=== PATIENT | female | born 1995 | race Caucasian/White ===

== ENCOUNTER 2019-09-28 18:00 | Emergency (ER) | payer OTHER ==
[~2019-09-28] VITALS: Ht 167.6 cm; Wt 137.0 kg
[2019-09-28] MEDS ORDERED: LISINOPRIL-HCT1 EACH PO (18:19)
[2019-09-28] MEDS ORDERED: FREESTYLE LANC1 EACH MISC (18:19)
[2019-09-28] MEDS ORDERED: METFORMIN HCL500 MG PO (18:19)
[2019-09-28] MEDS ORDERED: FREESTYLE LITE1 EAC2 MISC (18:19)
[2019-09-28] MEDS ORDERED: SERTRALINE HCL50 MG PO (18:19)
[2019-09-28] MEDS ORDERED: ULTRAM50 MG PO (21:22)
== END 2019-09-28 21:41 | disposition home or self-care (01) ==
LOC: ED 18:00
DX: R10.11 Right upper quadrant pain (principal); E11.9 Type 2 diabetes mellitus without complications; Z79.84 Long term (current) use of oral hypoglycemic drugs; Z79.899 Other long term (current) drug therapy
CPT/HCPCS: 74176; 76705; 80053; 81001; 83690; 84703; 85025; 96374; 96375; 99284-25; J1170; J1885; J2405; J7030

== ENCOUNTER 2021-02-07 05:55 | Day surgery (SDC) | payer OTHER ==
[~2021-02-07] VITALS: Ht 167.6 cm; Wt 97.7 kg
[~2021-02-07 05:55] MED LIST: BUSPIRONE HCL15 MG PO; CLONAZEPAM0.5 MG PO; DICYCLOMINE HCL10 MG PO; FREESTYLE LANC1 EACH MISC; FREESTYLE LITE1 EAC2 MISC; HYDROXYZINE HCL25 MG PO; LISINOPRIL-HCT1 EACH PO; METFORMIN HCL500 MG PO; OMEPRAZOLE20 MG PO; SERTRALINE HCL50 MG PO; ULTRAM50 MG PO; VENLAFAXINE HC150 MG PO; VENTOLIN HFA18 GM INH
--- NOTE | 2021-02-07 08:16 | NUR ---
PT ALERT, ORIENTED AND SUPPORTED BY HER MOTHER. FIRST SURGERY FOR PT, RATHER QUIET. ALL QUESTIONS ASKED ANSWERED, DR CONNER IN AND OR STAFF WAITING. GAVE BLESSING AND ENCOURAGEMENT. WILL FOLLOW NEEDED
--- NOTE | 2021-02-07 09:33 | NUR ---
02/07/21 0933 Lorri Riley 0928- PT ARRIVES TO PACU AWAKE AND ANSWERING QUESTIONS. PT REPORTS NO PAIN OR NAUSEA. RESP EVEN AND UNLABORED. OXYGEN SAT HIGH 90'S TO 100% ON 10L VIA MASK. 0931- OXYGEN TITRATED DOWN TO 6L VIA MASK.
[2021-02-07] MEDS ORDERED: IBUPROFEN600 MG PO (09:58)
[2021-02-07] MEDS ORDERED: ACETAMINOPHEN500 MG PO (09:59)
[2021-02-07] MEDS ORDERED: HYDROCODON-ACE1 EA10 PO (09:59)
--- NOTE | 2021-02-07 10:24 | NUR ---
PATIENT BACK TO ROOM FORM PACU ON RA. RECEIVED REPORT FROM SANDRA WITT. TANYA IS AWAKE. VSS. RATES PAIN 3/10 AND DECLINES PAIN MEDICATION AT THIS TIME. DENIES NAUSEA. ALL 5 LAP SITES HAVE A SMALL AMOUNT OF RED DRAINAGE. PATIENT HAS PILLOW ON ABDOMEN TO SPLINT WITH IF NEEDED. MOM AT BEDSIDE. PROVIDED PATIETN WITH WATER AND CRACKERS. CALL LIGHT WITHIN REACH.
--- NOTE | 2021-02-07 10:38 | NUR ---
PATIENT RATES PAIN 5/10. PAIN MEDICATION GIVEN PER EMAR.
--- NOTE | 2021-02-07 11:25 | NUR ---
1110-PATIENT AWAKE LAYING IN BED. VSS. RATES HER PAIN 4/10 PAIN. POINTS TO RUQ WHERE HER PAIN IS. DENIES NAUSEA. ALL 5 LAP SITES HAVE A SMALL AMOUNT OF RED DRAINAGE. PATIENT DRINKING WATER. MOM AT BEDSIDE. CALL LIGHT WITHIN REACH. 1115-PATIENT UP TO BATHROOM WITH 1 RN ASSIST. GAIT STEADY AND TOLERATED WELL. STATES "PAIN BETTER SINCE SITTING UP AND STANDING". ADJUSTED HOB. PAITENT SITTING UP IN BED. CALL LIGHT WITHIN REACH.
--- NOTE | 2021-02-07 12:12 | NUR ---
PATIENT AWAKE AND SITTING UP IN BED. VSS. RATES PAIN 2/10. DENIES NAUSEA. ALL 5 LAP SITES WITH SMALL AMOUNT OF DRAINAGE. MOM AT BEDSIDE. PATIENT IS DRINKING WATER. CALL LIGHT WITHIN REACH. 1213-PROVIDED PATIENT AND MOM WITH DISCHARGE INSTRUCTIONS. PATIENT VERBALIZED UNDERSTANDING AND ALL QUESTIONS ANSWERED.
--- NOTE | 2021-02-07 12:30 | NUR ---
PATIENT AMBULATES TO THE WHEEL CHAIR. STATES PAIN IS STILL 2/10. PROVIDED RIDE TO FRONT OF HOSPITAL WHERE PATIENTS MOM WAS WAITING WITH THE CAR.
--- NOTE | 2021-02-09 15:07 | OR ---
[facility] [address], [place] [address] Signed DATE OF OPERATION: 02/07/2021 SURGEON: Ximena Conner MD PREOPERATIVE DIAGNOSES: 1. Chronic persistent right lower abdominal pain and chronic recurrent right mid abdominal pain. 2. CCK-HIDA test abnormal, 30% ejection fraction. 3. Morbid obesity with significant additional weight loss (current weight 220 pounds). POSTOPERATIVE DIAGNOSES: 1. Mild chronic acalculous cholecystitis, normal cholangiogram. 2. Fatty liver. 3. 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 PROCEDURES: 1. Laparoscopic cholecystectomy with intraoperative cholangiogram. 2. Surgeon-directed fluoroscopy. 3. Laparoscopic liver biopsy. 4. Laparoscopic appendectomy. ANESTHESIA: General endotracheal, Ximena Mott CRNA and local 20 mL of 0.25% Marcaine with epinephrine. INDICATIONS: This 25-year-old white woman is a patient of BRINA Qiu. The patient has undergone significant and substantial weight loss effort, but still remains 220 pounds. She has developed over time right lower abdominal pain, which is occasionally disabling as well as right mid and upper abdominal pain. Upper endoscopy and colonoscopy failed to demonstrate etiology of the problem. Imaging studies have included ultrasound of the gallbladder, which was normal and CT scan showing no specific abnormality. She does have mild splenomegaly based on June 17, 2020 CT scan. A CCK-HIDA test showed an ejection fraction of 30%, which was essentially abnormal. She has had no improvement of her symptoms over time and on that basis, I have recommended laparoscopy with probable laparoscopic cholecystectomy and appendectomy and other indicated procedures. Evaluation of right adnexal structures and small bowel to assess for Meckel's diverticulum has also been discussed. The risks of bleeding, infection, bile duct injury, need for open procedure, and of course failure to improve her symptoms were reviewed in detail. She understands and wished to proceed. Electronically Signed By: XIMENA CONNER MD 02/09/21 1507 PATIENT NAME: MONTRELL JONES OPERATIVE REPORT DATE OF : [birth year] REPORT #: [id number] PHYSICIAN: XIMENA CONNER MD PCP: EMELIA PAGAN NP REPORT IS CONFIDENTIAL AND NOT TO BE RELEASED WITHOUT AUTHORIZATION [facility] [address], [place] [address] Signed FINDINGS: The liver had significant steatosis. The omentum initially was over the dome of the liver. The gallbladder once identified, did show chronic inflammatory change and an enlarged pericholecystic lymph node indicative of chronic recurrent inflammation. The gallbladder itself was excised, showed no sign of stones, but did have a shaggy mucosa consistent with adenomyosis. The cholangiogram was normal with no evidence of dilated duct. Lower abdominal examination showed a normal terminal ileum and no evidence of Meckel diverticulum. Appendix was not particularly distended, but was mildly chronically inflamed, and there was a small pearly nodule in the distal tip that about 1 cm in size. Whether this represents fibrous obliteration or neoplasm such as carcinoid remains uncertain. This was excised as well. The right ovary was normal without signs of cyst. DESCRIPTION OF PROCEDURE: The patient was brought to the operating room, given a general endotracheal anesthetic. Preoperative antibiotic Ancef was given. Sequential compression device stockings used and heparin subcutaneously administered. The large abdomen with multiple skin folds was prepared with a chlorhexidine solution and draped sterilely. An infraumbilical incision was made and using an open Yan cannula technique, the abdomen was entered and pneumoperitoneum achieved to a level of 14 mmHg of carbon dioxide gas. Intraabdominal inspection showed no sign of ascites or carcinomatosis. The laparoscope was passed into the abdomen. Examination showed omentum covering the right lobe of the liver. A very blunted and rounded liver edge consistent with fatty infiltration was noted. Three additional trocars were placed in usual configuration in the subxiphoid, right midclavicular, and right anterior axillary line. This allowed for manipulation of the omentum revealing the underlying gallbladder, which showed mild chronic inflammatory change. The gallbladder was grasped and elevated cephalad and retracted laterally. Using blunt and electrocautery dissection, the triangle of Calot was dissected free. Notable was an enlarged pericholecystic lymph node indicative of chronic recurrent inflammation. The cystic duct was well identified from surrounding structures and clip applied across gallbladder cystic duct junction. A transverse choledochotomy was made in the cystic duct allowing for egress of clear bile. Using the Guerrero type cholangiocatheter system, intraoperative cholangiography was undertaken showing free flow of contrast in the biliary tree with prompt emptying into the duodenum. The biliary tree was narrow and nondilated. On initial run on fluoroscopy, there appeared to be a filling defect in the mid common bile duct, but additional these did not show such to think this may have represented a bulb or some other similar abnormality. The gallbladder was dissected free in a retrograde fashion after application of clips to the cystic duct. The gallbladder was placed in an endobag and extracted through the Electronically Signed By: XIMENA CONNER MD 02/09/21 1507 PATIENT NAME: MONTRELL JONES OPERATIVE REPORT DATE OF : [birth year] REPORT #: [id number] PHYSICIAN: XIMENA CONNER MD PCP: EMELIA PAGAN NP REPORT IS CONFIDENTIAL AND NOT TO BE RELEASED WITHOUT AUTHORIZATION [facility] [address], [place] [address] Signed infraumbilical port site opened on the back table and found to have chronic inflammatory change of the mucosa. No evidence of stones or neoplasm. Irrigation was undertaken in subhepatic space. There was no sign of bleeding, bile leak, or other problems. Given the somewhat uncertain nature of her underlying symptoms and given her fatty liver and profound weight loss over time, it was deemed advisable at this point to perform a liver biopsy to assess level and the possibility of steatohepatitis. Percutaneous passage of the biopsy guide needle was undertaken under direct visualization after a small stab wound was made. Core biopsy was taken from the medial segment of the left lobe of the liver. Bleeding was secured with electrocautery. The specimen was offloaded, passed as a liver biopsy. Irrigation was undertaken showing no sign of bleeding or other problem. Attention was then turned towards the lower abdomen. Table was placed in a neutral position, previously in the head up, left side down position. Left side down was maintained to some degree, however. Laparoscopic placement of the catheter to the epigastric port allowed for single hand manipulation of the cecum in the lower abdomen. The appendix could not be identified with that method and on that basis, an additional 5 mm trocars placed in the left lower quadrant. Using two hand manipulation, the terminal ileum was identified as manifested by the antimesenteric fat pad of trieve. It appeared normal. The taenia coli of the cecum was followed down ultimately identifying the base of the appendix and ultimately the appendix itself identified. The appendix did not appear acutely inflamed, did have a chronic dull appearance suggestive of chronic appendicitis. The various manipulations of the appendix was elevated. There appeared to be a pearly nodule on the tip of the appendix, uncertain if this represented a carcinoid or some other neoplasm or simple fibrous obliteration of the tip. It was a bulbous appearance to be sure. A window was created between the appendix and the mesoappendix at the base of the appendix and using an Endo-REGINALDO stapling device. The appendix was transected and flushed with the cecum. The mesentery was similarly divided with another vascular load of stapler. The appendix was withdrawn into the trocar and explanted and examined and the nodule in the tip was quite real indeed. Photographs were taken. Irrigation was undertaken at the staple line. Minimal cautery was applied. There was no sign of ongoing bleeding. Excess irrigation fluid was suctioned free. Using two hand manipulation, the terminal ileum was examined gently running the bowel from distal to proximal showing no evidence of Meckel diverticulum. With some manipulation in table position, the right adnexal structures could be identified, identifying well and the ovary, which was normal without sign of cystic change. Excess irrigation fluid was suctioned free both in the upper and lower abdomen and plans made for closure. The camera was replaced to the infraumbilical site. The trocars removed under direct Electronically Signed By: IXMENA CONNER MD 02/09/21 1507 PATIENT NAME: MONTRELL JONES OPERATIVE REPORT DATE OF : [birth year] REPORT #: [id number] PHYSICIAN: XIMENA CONNER MD PCP: EMELIA PAGAN NP REPORT IS CONFIDENTIAL AND NOT TO BE RELEASED WITHOUT AUTHORIZATION [address] [address] Signed visualization showing no sign of bleeding. Yan cannula was removed. The midline fascia was reapproximated with interrupted 0-Vicryl suture and a running 0-PDS suture. A 20 mL of 0.25% Marcaine with epinephrine was injected locally. The skin closed with interrupted 3-0 Vicryl. Steri-Strips were applied. The patient was ultimately extubated and transferred to the recovery room in good condition having suffered no complications. Sponge, needle, and instrument counts were reported as correct x3. MD THELMA Barros/COLLINL /[id number] Copies: ~ Electronically Signed By: XIMENA CONNER MD 02/09/21 1507 PATIENT NAME: MONTRELL JONES OPERATIVE REPORT DATE OF : [birth year] REPORT #: [id number] PHYSICIAN: XIMENA CONNER MD PCP: EMELIA PAGAN NP REPORT IS CONFIDENTIAL AND NOT TO BE RELEASED WITHOUT AUTHORIZATION
--- NOTE | 2021-02-12 15:27 | PATH ---
[place] [facility] [address] [facility] [place], [place] [address] Signed SPECIMEN(S): A LIVER BIOPSY SPECIMEN(S): B APPENDIX WITH DISTAL NODULE SPECIMEN(S): C GALLBLADDER SPECIMEN SOURCE: A. LIVER BIOPSY B. APPENDIX WITH DISTAL NODULE C. GALLBLADDER CLINICAL HISTORY: Abdominal pain, right side. FINAL PATHOLOGIC DIAGNOSIS: A. Liver, biopsies: - Benign hepatic parenchyma with minimal periportal inflammation. - Negative for fibrosis. B. 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 - Tumor site: Distal half. - Tumor size: 0.7 cm in greatest dimension. - Histologic type and grade: Well-differentiated. - Mitotic rate: Less than 2 mitoses per 2 mm. - Ki-67 labeling index: Less than 3%. - Microscopic tumor extension: Invades subserosal tissue without involvement of visceral peritoneum. - Margins: Uninvolved by tumor. - Distance of tumor from closest margin: Cannot be assessed. - Lymphovascular invasion: Not identified. - Regional lymph nodes: None submitted. - Additional findings: None. - Pathologic staging: pT1 pNX. C. Gallbladder, cholecystectomy: - Cholelithiasis and chronic cholecystitis. - One benign lymph node. COMMENT: Properly controlled immunohistochemical stains were performed on block B3 for synaptophysin and Ki-67. The tumor cells are positive for synaptophysin while Ki-67 is present in less than 3%. PATIENT NAME: MONTRELL JONES ESTUARDOCARMELITAYenifer PATHOLOGY DATE OF : [birth year] REPORT #: [id number] PHYSICIAN: LAURA PATHOLOGY PCP: EMELIA PAGAN NP REPORT IS CONFIDENTIAL AND NOT TO BE RELEASED WITHOUT AUTHORIZATION [facility] [address] [place], [place] [address] Signed As part of [email or web address]' Quality Improvement Program, this case was reviewed by another member of our pathology staff. A diagnostic alert was initiated by Dr. Jimenez on 02/12/2021. [id number] MICROSCOPIC EXAMINATION: Histologic sections of all submitted blocks are examined by light microscopy. These findings, together with the gross examination, support the pathologic diagnosis. GROSS DESCRIPTION: Three specimens are received in three containers, labeled "SE." A. The specimen, labeled "SE, liver biopsy," is received in formalin and consists of one pink-thakkar, needle core tissue fragment that measure 1.0 cm in length and 0.1 cm in diameter. Specimen is inked black. Specimen is entirely submitted in cassette (A1). B. The specimen, labeled "SE, appendix," is received in formalin and consists of Specimen: Appendix with mesoappendix. Dimensions: 6.2 x 0.7 cm. Serosa: [place]-red, smooth with congested subserosal vessels. Defect: Not grossly identified. Inking: Staple line is inked black. Mucosa: [place]-red. Fecalith: Not grossly identified. Additional: Distal end of the appendix shows white, firm nodule that measure 0.7 cm in greatest dimension. Sectioning through the tip of the appendix shows yellow-thakkar homogenous tissue. Cassette summary: (B1) appendix and mesoappendix, resection margins, shave (B2) appendix, practice representative sections (B3) appendiceal nodule, entirely submitted C. The specimen, labeled "SE, gallbladder," is received in formalin and consists of Specimen: Previously opened gallbladder. Dimensions: 7.5 x 3.3 cm. Serosa: violaceous and smooth. Cystic Duct: unobstructed. Calculi: Calculi are not grossly identified within the gallbladder or within the container. Mucosa: [place]-red and velvety. PATIENT NAME: MONTRELL JONES PATHOLOGY DATE OF : [birth year] REPORT #: [id number] PHYSICIAN: LAURA CURRAN PCP: EMELIA PAGAN NP REPORT IS CONFIDENTIAL AND NOT TO BE RELEASED WITHOUT AUTHORIZATION [facility] [address] [place], [place] [address] Signed Wall thickness: 0.3 cm. Lymph node: One possible pericystic lymph node is identified and measure one-point thakkar centimeters in greatest dimension. Possible lymph node is sectioned and entirely submitted Additional: None. Emergency Specialist sections are submitted in cassette (C1). JS (under the direct supervision of a pathologist) The Gross Description was prepared using a voice recognition system. The report was reviewed for accuracy; however, sound-alike word errors, addition and/or deletions may occur. If there is any question about this report, please contact Client Services. ADDITIONAL NOTES: Immunohistochemical and/or in situ hybridization studies were performed on this case with the appropriate positive controls that react as expected. This test was developed and its performance characteristics determined by [facility]. It has not been cleared or approved by the U.S. Food and Drug Administration. The FDA has determined that such clearance or approval is not necessary. This test is used for clinical purposes. It should not be regarded as investigational or for research. [facility] is certified under the Clinical Laboratory Improvement Amendments of 1988 (CLIA) as qualified to perform high complexity clinical laboratory testing. This assay has not been validated for specimens that have been decalcified. PERFORMING LABORATORY: Professional interpretation was performed by [facility], [address] [place] [address] (Blanker Operator: Kelsea Harry MD; CLIA# [id number]). Diagnostician: Arsen Jimenez DO Pathologist Electronically Signed 02/12/2021 Copies: ~ PATIENT NAME: MONTRELL JONES PATHOLOGY DATE OF : [birth year] REPORT #: [id number] PHYSICIAN: LUARA CURRAN PCP: EMELIA PAGAN NP REPORT IS CONFIDENTIAL AND NOT TO BE RELEASED WITHOUT AUTHORIZATION
== END 2021-02-07 12:30 | disposition home or self-care (01) ==
LOC: DS 05:55
PROVIDERS: ATTEND Surgery
PROC: 0DTJ4ZZ Resection of Appendix, Percutaneous Endoscopic Approach (ICD-10-PCS; 2021-02-07)
PROC: 0FT44ZZ Resection of Gallbladder, Percutaneous Endoscopic Approach (ICD-10-PCS; principal; 2021-02-07 06:45)
PROC: BF13YZZ Fluoroscopy of Gallbladder and Bile Ducts using Other Contrast (ICD-10-PCS; 2021-02-07 06:45)
PROC: 0FB04ZX Excision of Liver, Percutaneous Endoscopic Approach, Diagnostic (ICD-10-PCS; 2021-02-07 06:45)
DX: K80.10 Calculus of gallbladder with chronic cholecystitis without obstruction (principal); K36 Other appendicitis; K76.0 Fatty (change of) liver, not elsewhere classified; D49.0 Neoplasm of unspecified behavior of digestive system; E66.01 Morbid (severe) obesity due to excess calories
CPT/HCPCS: 00790; 74300; J0131; J0330; J0690; J1100; J1644; J1885; J2250; J2405; J2704; J2765; J3010; J7121; Q9967

== ENCOUNTER 2022-07-05 15:36 | Emergency (ER) | payer OTHER ==
[~2022-07-05] VITALS: Ht 167.6 cm; Wt 107.0 kg
[~2022-07-05 15:36] MED LIST changes: +ACETAMINOPHEN500 MG PO; +HYDROCODON-ACE1 EA10 PO; +IBUPROFEN600 MG PO
[2022-07-05] MEDS ORDERED: ONDANSETRON ODT8 MG PO ×2 (18:00→18:27)
[2022-07-05] MEDS ORDERED: PROTONIX40 MG PO ×2 (18:00→18:27)
[2022-07-05] MEDS ORDERED: SUCRALFATE1 GM PO ×2 (18:00→18:27)
[2022-07-05] MEDS ORDERED: ACETAMINOPHEN500 MG PO (18:27)
== END 2022-07-05 18:30 | disposition home or self-care (01) ==
LOC: ED 15:36
DX: K29.70 Gastritis, unspecified, without bleeding (principal); E11.9 Type 2 diabetes mellitus without complications; Z79.899 Other long term (current) drug therapy
CPT/HCPCS: 36415; 80053; 81001; 83690; 83735; 84703; 85025; 96374; 96375; 99284-25; C9803; J2270; J2405

== ENCOUNTER 2022-08-25 17:34 | Emergency (ER) | payer OTHER ==
[~2022-08-25] VITALS: Ht 167.6 cm; Wt 107.0 kg
[~2022-08-25 17:34] MED LIST changes: +ONDANSETRON ODT8 MG PO; +PROTONIX40 MG PO; +SUCRALFATE1 GM PO
[2022-08-25] MEDS ORDERED: CETIRIZINE HCL10 MG PO (17:51)
[2022-08-25] MEDS ORDERED: TRULICITY0.75 MG/0. SUB-Q (17:52)
[2022-08-25] MEDS ORDERED: ONDANSETRON ODT8 MG PO (18:50)
[2022-08-25 18:59] VITALS: BP 106/69
== END 2022-08-25 18:59 | disposition home or self-care (01) ==
LOC: ED 17:34
DX: K29.00 Acute gastritis without bleeding (principal); E11.9 Type 2 diabetes mellitus without complications; Z79.899 Other long term (current) drug therapy
CPT/HCPCS: 36415; 80053; 81003; 83690; 84703; 85025; J2405; J7030

== ENCOUNTER 2022-11-01 08:19 | Emergency (ER) | payer OTHER ==
[~2022-11-01] VITALS: Ht 167.6 cm; Wt 112.9 kg
--- OUTSIDE RECORDS SUMMARY | ~2022-11-01 | XMS | Continuity of Care Document ---
Demographics + + + | Address | [address] | | | [place] [address] | + + + | Preferred Language | Unknown | + + + | Marital Status | Never | + + + | Orthodox Affiliation | Unknown | + + + | Race | White | + + + | Ethnic Group | Not or | + + + Author + + + | Author | [facility] | + + + | Organization | [facility] | + + + | Address | [address] | | | [place] [address] | + + + | Phone | | + + + Care Team Providers + + + + | Care Graduate Studies Dean Name | Role | Phone | + + + + Unavailable | Unavailable | + + + + Unavailable | Unavailable | + + + + Allergies and Intolerances + + + + + + | date | description | facility | reaction | severity | + + + + + + | (no date) | NO KNOWN | [facility] | (no reaction) | (no severity) | | | ALLERGIES | [facility] | | | | [facility] | | | + + + + + + Encounters No information. Functional Status No information. Immunizations No information. Medications + + + + | date | description | facility | + + + + | 2022-08-25 00:00 | CETIRIZINE HCL | [facility] | + + + + | 2022-08-25 00:00 | DULAGLUTIDE | [facility] | + + + + | 2022-07-05 00:00 | clonAZEpam | [facility] | + + + + | 2021-02-07 00:00 | IBUPROFEN | [facility] | + + + + | 2022-07-05 00:00 | | [facility] | | | LISINOPRIL/HYDROCHLOROTHIAZ | | | | [facility] | | + + + + | 2022-08-25 00:00 | | [facility] | | | LISINOPRIL/HYDROCHLOROTHIAZ | | | | [facility] | | + + + + | 2022-07-05 00:00 | OMEPRAZOLE | [facility] | + + + + | 2021-02-07 00:00 | ACETAMINOPHEN | [facility] | + + + + | 2022-07-05 00:00 | ACETAMINOPHEN | [facility] | + + + + | 2022-07-05 00:00 | PANTOPRAZOLE SODIUM | [facility] | + + + + | 2022-07-05 00:00 | ONDANSETRON | [facility] | + + + + | 2022-08-25 00:00 | ONDANSETRON | [facility] | + + + + | 2022-07-05 00:00 | SERTRALINE HCL | [facility] | + + + + | 2022-08-25 00:00 | SERTRALINE HCL | [facility] | + + + + | 2022-07-05 00:00 | VENLAFAXINE HCL | [facility] | + + + + | 2022-08-25 00:00 | VENLAFAXINE HCL | [facility] | + + + + | 2022-07-05 00:00 | SUCRALFATE | [facility] | + + + + | 2019-09-28 00:00 | TRAMADOL HCL | [facility] | + + + + | 2021-02-07 00:00 | HYDROCODONE | [facility] | | | BIT/ACETAMINOPHEN | | + + + + | 2022-07-05 00:00 | ALBUTEROL SULFATE | [facility] | + + + + | 2022-08-25 00:00 | ALBUTEROL SULFATE | [facility] | + + + + | 2022-07-05 00:00 | METFORMIN HCL | [facility] | + + + + | 2022-08-25 00:00 | METFORMIN HCL | [facility] | + + + + | 2022-07-05 00:00 | BUSPIRONE HCL | [facility] | + + + + | 2022-08-25 00:00 | BUSPIRONE HCL | [facility] | + + + + | 2022-07-05 00:00 | DICYCLOMINE HCL | [facility] | + + + + | 2022-07-05 00:00 | hydrOXYzine HCL | [facility] | + + + + | 2022-08-25 00:00 | hydrOXYzine HCL | [facility] | + + + + Problems + + + + | date | description | facility | + + + + | 2019-05-23 08:37:21 | Earache | [facility] | | | | [facility] | + + + + | 2019-05-23 08:37:21 | Brice souza, | [facility] - | | | bilateral | [facility] | + + + + | 2019-05-23 08:37:21 | Elevated blood-pressure | [facility] - | | | reading, without diagnosis | [facility] | | | of hypertension | | + + + + | 2019-06-17 00:00 | Viral respiratory | [facility] | | | infection | | + + + + | 2019-09-28 00:00 | Abdominal pain | [facility] | + + + + | 2022-07-05 00:00 | Gastritis | [facility] | + + + + | 2022-08-25 00:00 | Acute gastritis | [facility] | + + + + Procedures No information. Results/Labs +--------+--------+ +---------+--------+---------+ | test | date | facility | value | unit | notes | +--------+--------+ +---------+--------+---------+ + + | Result panel 1 | + + + + + + + + + | | 2022-07-05 | [facility] | NEGATIVE | (missing) | (missing) | | (unavailable | 16[facility]16:07 [facility] | | | | + + + + + + + + + | Result panel 2 | + + + + + +--------+ + + | | 2022-07-05 | [facility] | 10.3 | (missing) | (missing) | | (unavailable | [facility]16:07 [facility] | | | | + + + +--------+ + + + + | Result panel 3 | + + + + + +--------+ + + | | 2022-07-05 | [facility] | 5.47 | (missing) | (missing) | | (unavailable | 16[facility]16:07 [facility] | | | | + + + +--------+ + + + + | Result panel 4 | + + + + + +--------+ + + | | 2022-07-05 | [facility] | 15.4 | (missing) | (missing) | | (unavailable | [facility]16:07 [facility] | | | | + + + +--------+ + + + + | Result panel 5 | + + + + + +--------+ + + | | 2022-07-05 | [facility] | 44.6 | (missing) | (missing) | | (unavailable | [facility]:16:07 [facility] | | | | + + + +--------+ + + + + | Result panel 6 | + + + + + +--------+ + + | | 2022-07-05 | [facility] | 81.5 | (missing) | (missing) | | (unavailable | [facility]16:07 [facility] | | | | + + + +--------+ + + + + | Result panel 7 | + + + + + +--------+ + + | | 2022-07-05 | [facility] | 28.0 | (missing) | (missing) | | (unavailable | [facility]16:07 [facility] | | | | + + + +--------+ + + + + | Result panel 8 | + + + + + +--------+ + + | | 2022-07-05 | [facility] | 34.4 | (missing) | (missing) | | (unavailable | [facility]16:07 [facility] | | | | + + + +--------+ + + + + | Result panel 9 | + + + + + +--------+ + + | | 2022-07-05 | [facility] | 12.9 | (missing) | (missing) | | (unavailable | [facility]16:07 [facility] | | | | + + + +--------+ + + + + | Result panel 10 | + + + + + +-------+ + + | | 2022-07-05 | [facility] | 309 | (missing) | (missing) | | (unavailable | [facility]16:07 [facility] | | | | + + + +-------+ + + + + | Result panel 11 | + + + + + +--------+ + + | | 2022-07-05 | [facility] | 78.5 | (missing) | (missing) | | (unavailable | [facility]16:07 [facility] | | | | + + + +--------+ + + + + | Result panel 12 | + + + + + +--------+ + + | | 2022-07-05 | [facility] | 14.1 | (missing) | (missing) | | (unavailable | [facility]16:07 [facility] | | | | + + + +--------+ + + + + | Result panel 13 | + + + + + +-------+ + + | | 2022-07-05 | [facility] | 4.4 | (missing) | (missing) | | (unavailable | [facility]16:07 [facility] | | | | + + + +-------+ + + + + | Result panel 14 | + + + + + +-------+ + + | | 2022-07-05 | [facility] | 2.6 | (missing) | (missing) | | (unavailable | [facility]16:07 [facility] | | | | + + + +-------+ + + + + | Result panel 15 | + + + + + +-------+ + + | | 2022-07-05 | [facility] | 0.4 | (missing) | (missing) | | (unavailable | [facility]16:07 [facility] | | | | + + + +-------+ + + + + | Result panel 16 | + + + + + +------+---------+ + | | 2022-07-05 | [facility] | 92 | mg/dL | (missing) | | (unavailable | [facility]16:07 [facility] | | | | + + + +------+---------+ + + + | Result panel 17 | + + + + + +------+---------+ + | | 2022-07-05 | [facility] | 10 | mg/dL | (missing) | | (unavailable | [facility]16:07 [facility] | | | | + + + +------+---------+ + + + | Result panel 18 | + + + + + +--------+---------+ + | | 2022-07-05 | [facility] | 0.73 | mg/dL | (missing) | | (unavailable | [facility]:16:07 [facility] | | | | + + + +--------+---------+ + + + | Result panel 19 | + + + + + +-------+ + + | | 2022-07-05 | [facility] | 116 | (missing) | (missing) | | (unavailable | [facility]16:07 [facility] | | | | + + + +-------+ + + + + | Result panel 20 | + + + + + +---------+ + + | | 2022-07-05 | [facility] | 13.69 | (missing) | (missing) | | (unavailable | [facility]16:07 [facility] | | | | + + + +---------+ + + + + | Result panel 21 | + + + + + +-------+ + + | | 2022-07-05 | [facility] | 138 | (missing) | (missing) | | (unavailable | 16:16:07 [facility] | | | | + + + +-------+ + + + + | Result panel 22 | + + + + + +-------+ + + | | 2022-07-05 | [facility] | 3.5 | (missing) | (missing) | | (unavailable | [facility]16:07 [facility] | | | | + + + +-------+ + + + + | Result panel 23 | + + + + + +-------+ + + | | 2022-07-05 | [facility] | 101 | (missing) | (missing) | | (unavailable | 16[facility]16:07 [facility] | | | | + + + +-------+ + + + + | Result panel 24 | + + + + + +------+ + + | | 2022-07-05 | [facility] | 27 | (missing) | (missing) | | (unavailable | 16[facility]16:07 [facility] | | | | + + + +------+ + + + + | Result panel 25 | + + + + + +--------+ + + | | 2022-07-05 | [facility] | 13.5 | (missing) | (missing) | | (unavailable | [facility]16:07 [facility] | | | | + + + +--------+ + + + + | Result panel 26 | + + + + + +-------+---------+ + | | 2022-07-05 | [facility] | 9.7 | mg/dL | (missing) | | (unavailable | [facility]16:07 [facility] | | | | + + + +-------+---------+ + + + | Result panel 27 | + + + + + +-------+---------+ + | | 2022-07-05 | [facility] | 2.1 | mg/dL | (missing) | | (unavailable | 16:16:07 [facility] | | | | + + + +-------+---------+ + + + | Result panel 28 | + + + + + +-------+ + + | | 2022-07-05 | [facility] | 8.0 | (missing) | (missing) | | (unavailable | [facility]16:07 [facility] | | | | + + + +-------+ + + + + | Result panel 29 | + + + + + +-------+ + + | | 2022-07-05 | [facility] | 4.2 | (missing) | (missing) | | (unavailable | [facility]16:07 [facility] | | | | + + + +-------+ + + + + | Result panel 30 | + + + + + +-------+ + + | | 2022-07-05 | [facility] | 3.8 | (missing) | (missing) | | (unavailable | [facility]16:07 [facility] | | | | + + + +-------+ + + + + | Result panel 31 | + + + + + +--------+ + + | | 2022-07-05 | [facility] | 1.11 | (missing) | (missing) | | (unavailable | [facility]:16:07 [facility] | | | | + + + +--------+ + + + + | Result panel 32 | + + + + + +-------+ + + | | 2022-07-05 | [facility] | 0.4 | (missing) | (missing) | | (unavailable | [facility]16:07 [facility] | | | | + + + +-------+ + + + + | Result panel 33 | + + + + + +------+ + + | | 2022-07-05 | [facility] | 15 | (missing) | (missing) | | (unavailable | [facility]16:07 [facility] | | | | + + + +------+ + + + + | Result panel 34 | + + + + + +------+ + + | | 2022-07-05 | [facility] | 17 | (missing) | (missing) | | (unavailable | 16:16:07 [facility] | | | | + + + +------+ + + + + | Result panel 35 | + + + + + +------+ + + | | 2022-07-05 | [facility] | 61 | (missing) | (missing) | | (unavailable | 16:16:07 [facility] | | | | + + + +------+ + + + + | Result panel 36 | + + + + + +------+ + + | | 2022-07-05 | [facility] | 99 | (missing) | (missing) | | (unavailable | 16:16:07 [facility] | | | | + + + +------+ + + + + | Result panel 37 | + + + + + + + + + | | 2022-07-05 | [facility] | YELLOW | (missing) | (missing) | | (unavailable | 17:54:07 | [facility] | | | | + + + + + + + + + | Result panel 38 | + + + + + +---------+ + + | | 2022-07-05 | [facility] | CLEAR | (missing) | (missing) | | (unavailable | 17:54:07 | [facility] | | | | + + + +---------+ + + + + | Result panel 39 | + + + + + + + + + | | 2022-07-05 | [facility] | NEGATIVE | (missing) | (missing) | | (unavailable | 17:54:07 | [facility] | | | | + + + + + + + + + | Result panel 40 | + + + + + + + + + | | 2022-07-05 | [facility] | NEGATIVE | (missing) | (missing) | | (unavailable | 17:54:07 [facility] | | | | + + + + + + + + + | Result panel 41 | + + + + + + + + + | | 2022-07-05 | [facility] | NEGATIVE | (missing) | (missing) | | (unavailable | 17:54:07 | [facility] | | | | + + + + + + + + + | Result panel 42 | + + + + + +---------+ + + | | 2022-07-05 | [facility] | 1.015 | (missing) | (missing) | | (unavailable | 17:54:07 | [facility] | | | | + + + +---------+ + + + + | Result panel 43 | + + + + + + + + + | | 2022-07-05 | [facility] | NEGATIVE | (missing) | (missing) | | (unavailable | 17:54:07 | [facility] | | | | + + + + + + + + + | Result panel 44 | + + + + + +-------+ + + | | 2022-07-05 | [facility] | 8.5 | (missing) | (missing) | | (unavailable | 17:54:07 | [facility] | | | | + + + +-------+ + + + + | Result panel 45 | + + + + + +------+ + + | | 2022-07-05 | [facility] | 30 | (missing) | (missing) | | (unavailable | 17:54:07 | [facility] | | | | + + + +------+ + + + + | Result panel 46 | + + + + + + + + + | | 2022-07-05 | [facility] | NORMAL | (missing) | (missing) | | (unavailable | 17:54:07 | [facility] | | | | + + + + + + + + + | Result panel 47 | + + + + + + + + + | | 2022-07-05 | [facility] | NEGATIVE | (missing) | (missing) | | (unavailable | 17:54:07 | [facility] | | | | + + + + + + + + + | Result panel 48 | + + + + + + + + + | | 2022-07-05 | [facility] | MODERATE | (missing) | (missing) | | (unavailable | 17:54:07 | [facility] | | | | + + + + + + + + + | Result panel 49 | + + + + + +-------+ + + | | 2022-07-05 | [facility] | 2-3 | (missing) | (missing) | | (unavailable | 17:54:07 | [facility] | | | | + + + +-------+ + + + + | Result panel 50 | + + + + + +-------+ + + | | 2022-07-05 | [facility] | 4-6 | (missing) | (missing) | | (unavailable | 17:54:07 | [facility] | | | | + + + +-------+ + + + + | Result panel 51 | + + + + + + + + + | | 2022-07-05 | [facility] | SQUAMOUS 3+ | (missing) | (missing) | | (unavailable | 17:54:07 | [facility] | | | | + + + + + + + + + | Result panel 52 | + + + + + +--------+ + + | | 2022-07-05 | [facility] | RARE | (missing) | (missing) | | (unavailable | 17:54:07 | [facility] | | | | + + + +--------+ + + + + | Result panel 53 | + + + + + +------+ + + | | 2022-07-05 | [facility] | No | (missing) | (missing) | | (unavailable | 17:54:07 | [facility] | | | | + + + +------+ + + + + | Result panel 54 | + + + + + + + + + | | 2022-08-25 | [facility] | YELLOW | (missing) | (missing) | | (unavailable | 17:42:07 | [facility] | | | | + + + + + + + + + | Result panel 55 | + + + + + +---------+ + + | | 2022-08-25 | [facility] | CLEAR | (missing) | (missing) | | (unavailable | 17:42:07 | [facility] | | | | + + + +---------+ + + + + | Result panel 56 | + + + + + + + + + | | 2022-08-25 | [facility] | NEGATIVE | (missing) | (missing) | | (unavailable | 17:42:07 | [facility] | | | | + + + + + + + + + | Result panel 57 | + + + + + + + + + | | 2022-08-25 | [facility] | NEGATIVE | (missing) | (missing) | | (unavailable | 17:42:07 | [facility] | | | | + + + + + + + + + | Result panel 58 | + + + + + + + + + | | 2022-08-25 | [facility] | NEGATIVE | (missing) | (missing) | | (unavailable | 17:42:07 | [facility] | | | | + + + + + + + + + | Result panel 59 | + + + + + +---------+ + + | | 2022-08-25 | [facility] | 1.020 | (missing) | (missing) | | (unavailable | 17:42:07 | [facility] | | | | + + + +---------+ + + + + | Result panel 60 | + + + + + + + + + | | 2022-08-25 | [facility] | NEGATIVE | (missing) | (missing) | | (unavailable | 17:42:07 | [facility] | | | | + + + + + + + + + | Result panel 61 | + + + + + +-------+ + + | | 2022-08-25 | [facility] | 6.5 | (missing) | (missing) | | (unavailable | 17:42:07 | [facility] | | | | + + + +-------+ + + + + | Result panel 62 | + + + + + + + + + | | 2022-08-25 | [facility] | NEGATIVE | (missing) | (missing) | | (unavailable | 17:42:07 | [facility] | | | | + + + + + + + + + | Result panel 63 | + + + + + + + + + | | 2022-08-25 | [facility] | NORMAL | (missing) | (missing) | | (unavailable | 17:42:07 | [facility] | | | | + + + + + + + + + | Result panel 64 | + + + + + + + + + | | 2022-08-25 | [facility] | NEGATIVE | (missing) | (missing) | | (unavailable | 17:42:07 | [facility] | | | | + + + + + + + + + | Result panel 65 | + + + + + + + + + | | 2022-08-25 | [facility] | NEGATIVE | (missing) | (missing) | | (unavailable | 17:42:07 | [facility] | | | | + + + + + + + + + | Result panel 66 | + + + + + + + + + | | 2022-08-25 | [facility] | NEGATIVE | (missing) | (missing) | | (unavailable | 17:42:07 | [facility] | | | | + + + + + + + + + | Result panel 67 | + + + + + +-------+ + + | | 2022-08-25 | [facility] | 9.9 | (missing) | (missing) | | (unavailable | 18:05:07 | [facility] | | | | + + + +-------+ + + + + | Result panel 68 | + + + + + +--------+ + + | | 2022-08-25 | [facility] | 75.4 | (missing) | (missing) | | (unavailable | 18:05:07 [facility] | | | | + + + +--------+ + + + + | Result panel 69 | + + + + + +--------+ + + | | 2022-08-25 | [facility] | 17.0 | (missing) | (missing) | | (unavailable | :07 | [facility] | | | | + + + +--------+ + + + + | Result panel 70 | + + + + + +-------+ + + | | 2022-08-25 | [facility] | 4.3 | (missing) | (missing) | | (unavailable | 18::07 | [facility] | | | | + + + +-------+ + + + + | Result panel 71 | + + + + + +-------+ + + | | 2022-08-25 | [facility] | 3.0 | (missing) | (missing) | | (unavailable | | [facility] | | | | + + + +-------+ + + + + | Result panel 72 | + + + + + +-------+ + + | | 2022-08-25 | [facility] | 0.3 | (missing) | (missing) | | (unavailable | 07 | [facility] | | | | + + + +-------+ + + + + | Result panel 73 | + + + + + +--------+ + + | | 2022-08-25 | [facility] | 5.21 | (missing) | (missing) | | (unavailable | ::07 | [facility] | | | | + + + +--------+ + + + + | Result panel 74 | + + + + + +------+---------+ + | | 2022-08-25 | [facility] | 90 | mg/dL | (missing) | | (unavailable | 18::07 | [facility] | | | | + + + +------+---------+ + + + | Result panel 75 | + + + + + +------+---------+ + | | 2022-08-25 | [facility] | 16 | mg/dL | (missing) | | (unavailable | | [facility] | | | | + + + +------+---------+ + + + | Result panel 76 | + + + + + +--------+---------+ + | | 2022-08-25 | [facility] | 0.85 | mg/dL | (missing) | | (unavailable | | [facility] | | | | + + + +--------+---------+ + + + | Result panel 77 | + + + + + +--------+ + + | | 2022-08-25 | [facility] | 14.6 | (missing) | (missing) | | (unavailable | ::07 | [facility] | | | | + + + +--------+ + + + + | Result panel 78 | + + + + + +------+ + + | | 2022-08-25 | [facility] | 96 | (missing) | (missing) | | (unavailable | ::07 | [facility] | | | | + + + +------+ + + + + | Result panel 79 | + + + + + +---------+ + + | | 2022-08-25 | [facility] | 18.82 | (missing) | (missing) | | (unavailable | 18::07 | [facility] | | | | + + + +---------+ + + + + | Result panel 80 | + + + + + +-------+ + + | | 2022-08-25 | [facility] | 140 | (missing) | (missing) | | (unavailable | 18::07 | [facility] | | | | + + + +-------+ + + + + | Result panel 81 | + + + + + +-------+ + + | | 2022-08-25 | [facility] | 3.7 | (missing) | (missing) | | (unavailable | 18:05:07 | [facility] | | | | + + + +-------+ + + + + | Result panel 82 | + + + + + +-------+ + + | | 2022-08-25 | [facility] | 101 | (missing) | (missing) | | (unavailable | 18::07 | [facility] | | | | + + + +-------+ + + + + | Result panel 83 | + + + + + +------+ + + | | 2022-08-25 | [facility] | 29 | (missing) | (missing) | | (unavailable | 18:05:07 [facility] | | | | + + + +------+ + + + + | Result panel 84 | + + + + + +--------+ + + | | 2022-08-25 | [facility] | 13.7 | (missing) | (missing) | | (unavailable | 18:05:07 [facility] | | | | + + + +--------+ + + + + | Result panel 85 | + + + + + +-------+---------+ + | | 2022-08-25 | [facility] | 9.6 | mg/dL | (missing) | | (unavailable | 18:05:07 [facility] | | | | + + + +-------+---------+ + + + | Result panel 86 | + + + + + +-------+ + + | | 2022-08-25 | [facility] | 8.3 | (missing) | (missing) | | (unavailable | 18:05:07 [facility] | | | | + + + +-------+ + + + + | Result panel 87 | + + + + + +-------+ + + | | 2022-08-25 | [facility] | 4.2 | (missing) | (missing) | | (unavailable | 18:05:07 | [facility] | | | | + + + +-------+ + + + + | Result panel 88 | + + + + + +--------+ + + | | 2022-08-25 | [facility] | 43.6 | (missing) | (missing) | | (unavailable | 18:05:07 | [facility] | | | | + + + +--------+ + + + + | Result panel 89 | + + + + + +-------+ + + | | 2022-08-25 | [facility] | 4.1 | (missing) | (missing) | | (unavailable | 18:05:07 | [facility] | | | | + + + +-------+ + + + + | Result panel 90 | + + + + + +--------+ + + | | 2022-08-25 | [facility] | 1.02 | (missing) | (missing) | | (unavailable | 18:05:07 | [facility] | | | | + + + +--------+ + + + + | Result panel 91 | + + + + + +-------+ + + | | 2022-08-25 | [facility] | 0.4 | (missing) | (missing) | | (unavailable | 18::07 | [facility] | | | | + + + +-------+ + + + + | Result panel 92 | + + + + + +------+ + + | | 2022-08-25 | [facility] | 14 | (missing) | (missing) | | (unavailable | 18::07 | [facility] | | | | + + + +------+ + + + + | Result panel 93 | + + + + + +------+ + + | | 2022-08-25 | [facility] | 29 | (missing) | (missing) | | (unavailable | 18::07 | [facility] | | | | + + + +------+ + + + + | Result panel 94 | + + + + + +------+ + + | | 2022-08-25 | [facility] | 68 | (missing) | (missing) | | (unavailable | 18::07 | [facility] | | | | + + + +------+ + + + + | Result panel 95 | + + + + + +-------+ + + | | 2022-08-25 | [facility] | 103 | (missing) | (missing) | | (unavailable | 18::07 | [facility] | | | | + + + +-------+ + + + + | Result panel 96 | + + + + + +--------+ + + | | 2022-08-25 | [facility] | 83.6 | (missing) | (missing) | | (unavailable | 18:05:07 | [facility] | | | | + + + +--------+ + + + + | Result panel 97 | + + + + + +--------+ + + | | 2022-08-25 | [facility] | 27.9 | (missing) | (missing) | | (unavailable | 18:05:07 | [facility] | | | | + + + +--------+ + + + + | Result panel 98 | + + + + + +--------+ + + | | 2022-08-25 | [facility] | 33.4 | (missing) | (missing) | | (unavailable | 18:05:07 | [facility] | | | | + + + +--------+ + + + + | Result panel 99 | + + + + + +--------+ + + | | 2022-08-25 | [facility] | 13.1 | (missing) | (missing) | | (unavailable | 18:05:07 | [facility] | | | | + + + +--------+ + + + + | Result panel 100 | + + + + + +-------+ + + | | 2022-08-25 | [facility] | 330 | (missing) | (missing) | | (unavailable | 18:05:07 | [facility] | | | | + + + +-------+ + + Social History No information. Vital Signs + + + +---------+ | date | measurement | value | units | + + + +---------+ | 2022-07-05 00:00 | BMI | 38.1 | kg/m2 | + + + +---------+ | 2022-07-05 00:00 | BP_diastolic | 56 | mmHg | + + + +---------+ | 2022-07-05 00:00 | BP_systolic | 101 | mmHg | + + + +---------+ | 2022-07-05 00:00 | heart_rate | 67 | /min | + + + +---------+ | 2022-07-05 00:00 | height_metric | 167.64 | cm | + + + +---------+ | 2022-07-05 00:00 | height_standard | 66 | in | + + + +---------+ | 2022-07-05 00:00 | o2_saturation | 96 | % | + + + +---------+ | 2022-07-05 00:00 | respiration_rate | 16 | /min | + + + +---------+ | 2022-07-05 00:00 | temperature_metric | 36.5 | C | | | | | | + + + +---------+ | 2022-07-05 00:00 | | 97.7 | F | | | temperature_standar | | | | | d | | | + + + +---------+ | 2022-07-05 00:00 | weight_metric | 107 | kg | + + + +---------+ | 2022-07-05 00:00 | weight_standard | 235.89 | lb | + + + +---------+ | 2022-08-25 00:00 | BMI | 38.1 | kg/m2 | + + + +---------+ | 2022-08-25 00:00 | BP_diastolic | 69 | mmHg | + + + +---------+ | 2022-08-25 00:00 | BP_systolic | 106 | mmHg | + + + +---------+ | 2022-08-25 00:00 | heart_rate | 65 | /min | + + + +---------+ | 2022-08-25 00:00 | height_metric | 167.64 | cm | + + + +---------+ | 2022-08-25 00:00 | height_standard | 66 | in | + + + +---------+ | 2022-08-25 00:00 | o2_saturation | 99 | % | + + + +---------+ | 2022-08-25 00:00 | respiration_rate | 18 | /min | + + + +---------+ | 2022-08-25 00:00 | temperature_metric | 36.44 | C | | | | | | + + + +---------+ | 2022-08-25 00:00 | | 97.6 | F | | | temperature_standar | | | | | d | | | + + + +---------+ | 2022-08-25 00:00 | weight_metric | 106.99 | kg | + + + +---------+ | 2022-08-25 00:00 | weight_standard | 235.87 | lb | + + + +---------+ | 2022-08-25 00:00 | weight_standard | 235.88 | lb | + + + +---------+"
--- OUTSIDE RECORDS SUMMARY | ~2022-11-01 | XMS | Continuity of Care Document ---
Demographics + + + | Address | [address] | | | [place] [address] | + + + | Preferred Language | Unknown | + + + | Marital Status | Never | + + + | Gnosticism Affiliation | Unknown | + + + | Race | White | + + + | Ethnic Group | Not or | + + + Author + + + | Author | [facility] | + + + | Organization | [facility] | + + + | Address | [address] | | | [place] [address] | + + + | Phone | | + + + Care Team Providers + + + + | Care Speech Therapist Name | Role | Phone | + [...] - | | | | | | [place] | | | + + + + + + Encounters No information. Functional Status No information. Immunizations No information. Medications + + + + | date | description | facility | + + + + | 2022-08-25 00:00 | CETIRIZINE HCL | [facility] | + + + + | 2022-08-25 00:00 | DULAGLUTIDE | [facility] | + + + + | 2022-07-05 00:00 | clonAZEpam | [facility] | + + + + | 2021-02-07 00:00 | IBUPROFEN | [facility] | + + + + | 2022-07-05 00:00 | | [facility] | | | LISINOPRIL/HYDROCHLOROTHIAZ | | | | [place] | | + + + + | 2022-08-25 00:00 | | [facility] | | | LISINOPRIL/HYDROCHLOROTHIAZ | | | | [place] | | + + + + | 2022-07-05 00:00 | OMEPRAZOLE | [facility] | + + + + | 2021-02-07 00:00 | ACETAMINOPHEN | [facility] | + + + + | 2022-07-05 00:00 | ACETAMINOPHEN | [facility] | + + + + | 2022-07-05 00:00 | PANTOPRAZOLE SODIUM | [facility] | + + + + | 2022-07-05 00:00 | ONDANSETRON | [facility] | + + + + | 2022-08-25 00:00 | ONDANSETRON | [facility] | + + + + | 2022-07-05 00:00 | SERTRALINE HCL | [facility] | + + + + | 2022-08-25 00:00 | SERTRALINE HCL | [facility] | + + + + | 2022-07-05 00:00 | VENLAFAXINE HCL | [facility] | + + + + | 2022-08-25 00:00 | VENLAFAXINE HCL | [facility] | + + + + | 2022-07-05 00:00 | SUCRALFATE | [facility] | + + + + | 2019-09-28 00:00 | TRAMADOL HCL | [facility] | + + + + | 2021-02-07 00:00 | HYDROCODONE | [facility] | | | BIT/ACETAMINOPHEN | | + + + + | 2022-07-05 00:00 | ALBUTEROL SULFATE | [facility] | + + + + | 2022-08-25 00:00 | ALBUTEROL SULFATE | [facility] | + + + + | 2022-07-05 00:00 | METFORMIN HCL | [facility] | + + + + | 2022-08-25 00:00 | METFORMIN HCL | [facility] | + + + + | 2022-07-05 00:00 | BUSPIRONE HCL | [facility] | + + + + | 2022-08-25 00:00 | BUSPIRONE HCL | [facility] | + + + + | 2022-07-05 00:00 | DICYCLOMINE HCL | [facility] | + + + + | 2022-07-05 00:00 | hydrOXYzine HCL | [facility] | + + + + | 2022-08-25 00:00 | hydrOXYzine HCL | [facility] | + + + + Problems + + + + | date | description | facility | + + + + | 2019-05-23 08:37:21 | Earache | [facility] - | | | | [place] | + + + + | 2019-05-23 08:37:21 | Brice souza, | [facility] - | | | bilateral | [place] | + + + + | 2019-05-23 08:37:21 | Elevated blood-pressure | [facility] - | | | reading, without diagnosis | [place] | | | of hypertension | | + + + + | 2019-06-17 00:00 | Viral respiratory | [facility] | | | infection | | + + + + | 2019-09-28 00:00 | Abdominal pain | [facility] | + + + + | 2022-07-05 00:00 | Gastritis | [facility] | + + + + | 2022-08-25 00:00 | Acute gastritis | [facility] | + + + + Procedures No [...]
[~2022-11-01 08:19] MED LIST changes: +CETIRIZINE HCL10 MG PO; +TRULICITY0.75 MG/0. SUB-Q
[2022-11-01] MEDS ORDERED: BACTRIM DS TAB1 EACH PO (08:32)
[2022-11-01 08:40] VITALS: BP 114/64
== END 2022-11-01 08:45 | disposition home or self-care (01) ==
LOC: ED 08:19
DX: L02.416 Cutaneous abscess of left lower limb (principal); E11.9 Type 2 diabetes mellitus without complications; Z79.899 Other long term (current) drug therapy; Z79.4 Long term (current) use of insulin
CPT/HCPCS: 99282

== ENCOUNTER 2022-11-28 09:41 | Emergency (ER) | payer OTHER ==
[~2022-11-28] VITALS: Ht 167.6 cm; Wt 113.9 kg
--- OUTSIDE RECORDS SUMMARY | ~2022-11-28 | XMS | Continuity of Care Document ---
Demographics + + + | Address | [address] | | | [place] [address] | + + + | Preferred Language | Unknown | + + + | Marital Status | Never | + + + | Religion Affiliation | Unknown | + + + | Race | White | + + + | Ethnic Group | Not or | + + + Author + + + | Author | [facility] | + + + | Organization | [facility] | + + + | Address | [address] | | | [place] [address] | + + + | Phone | | + + + Care Team Providers + + + + | Care Vehicle Service Attendant Name | Role | Phone | + [...] - | | | | | | [place] | | | + + + + + + | (no date) | No Known Drug | [facility] | (no reaction) | (no severity) | | | Allergies | | | | + + + + + + Encounters No information. Functional Status No information. Immunizations No information. Medications + + + + | date | description | facility | + + + + | 2022-08-25 00:00 | CETIRIZINE HCL | [facility] | + + + + | 2022-11-01 00:00 | CETIRIZINE HCL | [facility] | + + + + | 2022-08-25 00:00 | DULAGLUTIDE | [facility] | + + + + | 2022-11-01 00:00 | DULAGLUTIDE | [facility] | + + + + | 2022-07-05 00:00 | clonAZEpam | [facility] | + + + + | 2021-02-07 00:00 | IBUPROFEN | [facility] | + + + + | 2022-07-05 00:00 | | [facility] | | | LISINOPRIL/HYDROCHLOROTHIAZ | | | | [place] | | + + + + | 2022-08-25 00:00 | | [facility] | | | LISINOPRIL/HYDROCHLOROTHIAZ | | | | [place] | | + + + + | 2022-11-01 00:00 | | [facility] | | | LISINOPRIL/HYDROCHLOROTHIAZ | | | | [place] | | + + + + | 2022-07-05 00:00 | OMEPRAZOLE | [facility] | + + + + | 2021-02-07 00:00 | ACETAMINOPHEN | [facility] | + + + + | 2022-07-05 00:00 | ACETAMINOPHEN | [facility] | + + + + | 2022-07-05 00:00 | PANTOPRAZOLE SODIUM | [facility] | + + + + | 2022-07-05 00:00 | ONDANSETRON | [facility] | + + + + | 2022-08-25 00:00 | ONDANSETRON | [facility] | + + + + | 2022-07-05 00:00 | SERTRALINE HCL | [facility] | + + + + | 2022-08-25 00:00 | SERTRALINE HCL | [facility] | + + + + | 2022-11-01 00:00 | SERTRALINE HCL | [facility] | + + + + | 2022-07-05 00:00 | VENLAFAXINE HCL | [facility] | + + + + | 2022-08-25 00:00 | VENLAFAXINE HCL | [facility] | + + + + | 2022-11-01 00:00 | VENLAFAXINE HCL | [facility] | + + + + | 2022-07-05 00:00 | SUCRALFATE | [facility] | + + + + | 2019-09-28 00:00 | TRAMADOL HCL | [facility] | + + + + | 2022-11-01 00:00 | | [facility] | | | SULFAMETHOXAZOLE/TRIMETHOPR | | | | IM DS | | + + + + | 2021-02-07 00:00 | HYDROCODONE | [facility] | | | BIT/ACETAMINOPHEN | | + + + + | 2022-07-05 00:00 | ALBUTEROL SULFATE | [facility] | + + + + | 2022-08-25 00:00 | ALBUTEROL SULFATE | [facility] | + + + + | 2022-11-01 00:00 | ALBUTEROL SULFATE | [facility] | + + + + | 2022-07-05 00:00 | METFORMIN HCL | [facility] | + + + + | 2022-08-25 00:00 | METFORMIN HCL | [facility] | + + + + | 2022-11-01 00:00 | METFORMIN HCL | [facility] | + + + + | 2022-07-05 00:00 | BUSPIRONE HCL | [facility] | + + + + | 2022-08-25 00:00 | BUSPIRONE HCL | [facility] | + + + + | 2022-11-01 00:00 | BUSPIRONE HCL | [facility] | + + + + | 2022-07-05 00:00 | DICYCLOMINE HCL | [facility] | + + + + | 2022-07-05 00:00 | hydrOXYzine HCL | [facility] | + + + + | 2022-08-25 00:00 | hydrOXYzine HCL | [facility] | + + + + | 2022-11-01 00:00 | hydrOXYzine HCL | [facility] | + + + + Problems + + + + | date | description | facility | + + + + | 2019-05-23 08:37:21 | Earache | [facility] - | | | | [place] | + + + + | 2019-05-23 08:37:21 | Brice souza, | [facility] - | | | bilateral | [place] | + + + + | 2019-05-23 08:37:21 | Elevated blood-pressure | [facility] - | | | reading, without diagnosis | [place] | | | of hypertension | | + + + + | 2019-06-17 00:00 | Viral respiratory | [facility] | | | infection | | + + + + | 2019-09-28 00:00 | Abdominal pain | [facility] | + + + + | 2022-07-05 00:00 | Gastritis | [facility] | + + + + | 2022-08-25 00:00 | Acute gastritis | [facility] | + + + + | 2022-11-01 00:00 | Cutaneous abscess of left | [facility] | | | lower extremity | | + + + + | 2022-11-01 08:20 | TYPE 2 DIABETES MELLITUS | [facility] | | | WITHOUT COMPLICATIONS | | + + + + | 2022-11-01 08:20 | CUTANEOUS ABSCESS OF LEFT | [facility] | | | LOWER LIMB | | + + + + | 2022-11-01 08:20 | DISORDER OF THE SKIN AND | [facility] | | | SUBCUTANEOUS TISSUE, | | | | UNSPECIFIED | | + + + + | 2022-11-01 08:20 | [facility] (CURRENT) USE OF | [facility] | | | INSULIN | | + + + + | 2022-11-01 08:20 | OTHER PETROLEUM INSPECTOR (CURRENT) | [facility] | | | DRUG THERAPY | | + + + + Procedures No [...] (missing) | (missing) | | (unavailable | 16:16: | [facility] | | | | | [...] (missing) | (missing) | | (unavailable | 16:: | [facility] | | [facility] | | | | + + + +--------+ + + + + | Result panel 26 | + + + + + +-------+---------+ + | | 2022-07-05 | [facility] | 9.7 | mg/dL | (missing) | | (unavailable | 16::07 | [facility] | | | | + + + +-------+---------+ + + + | Result panel 27 | + + + + + +-------+---------+ + | | 2022-07-05 | [facility] | 2.1 | mg/dL | (missing) | | (unavailable | 16: | [facility] | [facility] | | | | + + + +-------+---------+ + + + | Result panel 28 | + + + + + +-------+ + + | | 2022-07-05 | [facility] | 8.0 | (missing) | (missing) | | (unavailable | 16: | [facility] | | | | | [...] (missing) | | (unavailable | 18:05:07 | [facility] | | | | | ) | [...] 235.88 | lb | + + + +---------+ | 2022-11-01 00:00 | BMI | 40.2 | kg/m2 | + + + +---------+ | 2022-11-01 00:00 | BP_diastolic | 64 | mmHg | + + + +---------+ | 2022-11-01 00:00 | BP_systolic | 114 | mmHg | + + + +---------+ | 2022-11-01 00:00 | heart_rate | 84 | /min | + + + +---------+ | 2022-11-01 00:00 | height_metric | 167.64 | cm | + + + +---------+ | 2022-11-01 00:00 | height_standard | 66 | in | + + + +---------+ | 2022-11-01 00:00 | o2_saturation | 99 | % | + + + +---------+ | 2022-11-01 00:00 | respiration_rate | 17 | /min | + + + +---------+ | 2022-11-01 00:00 | temperature_metric | 36.5 | C | | | | | | + + + +---------+ | 2022-11-01 00:00 | | 97.7 | F | | | temperature_standar | | | | | d | | | + + + +---------+ | 2022-11-01 00:00 | weight_metric | 112.9 | kg | + + + +---------+ | 2022-11-01 00:00 | weight_standard | 248.9 | lb | + + + +---------+"
--- OUTSIDE RECORDS SUMMARY | ~2022-11-28 | XMS | Continuity of Care Document ---
Demographics + + + | Address | [address] | | | [place] [address] | + + + | Preferred Language | Unknown | + + + | Marital Status | Never | + + + | Confucianism Affiliation | Unknown | + + + | Race | White | + + + | Ethnic Group | Not or | + + + Author + + + | Author | [facility] | + + + | Organization | [facility] | + + + | Address | [address] | | | [place] [address] | + + + | Phone | | + + + Care Team Providers + + + + | Care Ice Cream Man Name | Role | Phone | + [...] - | | | | | | [place] | | | + + + + [...] | 2022-08-25 00:00 | CETIRIZINE HCL | [facility] | + + + + | 2022-11-01 00:00 | CETIRIZINE HCL | [facility] | + + + + | 2022-08-25 00:00 | DULAGLUTIDE | [facility] | + + + + | 2022-11-01 00:00 | DULAGLUTIDE | [facility] | + + + + | 2022-07-05 00:00 | clonAZEpam | [facility] | + + + + | 2021-02-07 00:00 | IBUPROFEN | [facility] | + + + + | 2022-07-05 00:00 | | [facility] | | | LISINOPRIL/HYDROCHLOROTHIAZ | | | | [place] | | + + + + | 2022-08-25 00:00 | | [facility] | | | LISINOPRIL/HYDROCHLOROTHIAZ | | | | [place] | | + + + + | 2022-11-01 00:00 | | [facility] | | | LISINOPRIL/HYDROCHLOROTHIAZ | | | | [place] | | + + + + | 2022-07-05 00:00 | OMEPRAZOLE | [facility] | + + + + | 2021-02-07 00:00 | ACETAMINOPHEN | [facility] | + + + + | 2022-07-05 00:00 | ACETAMINOPHEN | [facility] | + + + + | 2022-07-05 00:00 | PANTOPRAZOLE SODIUM | [facility] | + + + + | 2022-07-05 00:00 | ONDANSETRON | [facility] | + + + + | 2022-08-25 00:00 | ONDANSETRON | [facility] | + + + + | 2022-07-05 00:00 | SERTRALINE HCL | [facility] | + + + + | 2022-08-25 00:00 | SERTRALINE HCL | [facility] | + + + + | 2022-11-01 00:00 | SERTRALINE HCL | [facility] | + + + + | 2022-07-05 00:00 | VENLAFAXINE HCL | [facility] | + + + + | 2022-08-25 00:00 | VENLAFAXINE HCL | [facility] | + + + + | 2022-11-01 00:00 | VENLAFAXINE HCL | [facility] | + + + + | 2022-07-05 00:00 | SUCRALFATE | [facility] | + + + + | 2019-09-28 00:00 | TRAMADOL HCL | [facility] | + + + + | 2022-11-01 00:00 | | [facility] | | | SULFAMETHOXAZOLE/TRIMETHOPR | | | | IM DS | | + + + + | 2021-02-07 00:00 | HYDROCODONE | [facility] | | | BIT/ACETAMINOPHEN | | + + + + | 2022-07-05 00:00 | ALBUTEROL SULFATE | [facility] | + + + + | 2022-08-25 00:00 | ALBUTEROL SULFATE | [facility] | + + + + | 2022-11-01 00:00 | ALBUTEROL SULFATE | [facility] | + + + + | 2022-07-05 00:00 | METFORMIN HCL | [facility] | + + + + | 2022-08-25 00:00 | METFORMIN HCL | [facility] | + + + + | 2022-11-01 00:00 | METFORMIN HCL | [facility] | + + + + | 2022-07-05 00:00 | BUSPIRONE HCL | [facility] | + + + + | 2022-08-25 00:00 | BUSPIRONE HCL | [facility] | + + + + | 2022-11-01 00:00 | BUSPIRONE HCL | [facility] | + + + + | 2022-07-05 00:00 | DICYCLOMINE HCL | [facility] | + + + + | 2022-07-05 00:00 | hydrOXYzine HCL | [facility] | + + + + | 2022-08-25 00:00 | hydrOXYzine HCL | [facility] | + + + + | 2022-11-01 00:00 | hydrOXYzine HCL | [facility] | + + + + Problems + + + + | date | description | facility | + + + + | 2019-05-23 08:37:21 | Earache | [facility] - | | | | [place] | + + + + | 2019-05-23 08:37:21 | Brice souza, | [facility] - | | | bilateral | [place] | + + + + | 2019-05-23 08:37:21 | Elevated blood-pressure | [facility] - | | | reading, without diagnosis | [place] | | | of hypertension | | + + + + | 2019-06-17 00:00 | Viral respiratory | [facility] | | | infection | | + + + + | 2019-09-28 00:00 | Abdominal pain | [facility] | + + + + | 2022-07-05 00:00 | Gastritis | [facility] | + + + + | 2022-08-25 00:00 | Acute gastritis | [facility] | + + + + | 2022-11-01 00:00 | Cutaneous abscess of left | [facility] | | | lower extremity | | [...] + + + | 2022-11-01 08:20 | ALF (CURRENT) USE OF | [facility] | | | INSULIN | | + + + + | 2022-11-01 08:20 | OTHER STABLE MANAGER (CURRENT) | [facility] | | | DRUG [...] (missing) | | (unavailable | 18:05:07 | [facility] | | | | | ) | [...]
[~2022-11-28 09:41] MED LIST changes: +BACTRIM DS TAB1 EACH PO
--- OUTSIDE RECORDS SUMMARY | 2022-11-28 09:49 | XMS ---
PreManage Notification: MONTRELL JONES Security Clean Room Assembler Events No recent Security Events currently on file CRITERIA MET - [facility] - 2 Visits in 30 Days CARE PROVIDERS -[place]- Dentist: Take Away Worker [facility] PHONE: [phone] MARLEN [facility] Current PHONE: [phone] Omkar has no Care Guidelines for this patient. EKhoa VISIT COUNT (12 MO.) [address] [place] [address] TOTAL 4 NOTE: Visits indicate total known visits. ED/UCC VISIT TRACKING (12 MO.) 11/28/2022 09:42 [facility] Emergency COMPLAINT: - SKIN PROBLEM 11/01/2022 08:20 [facility] TYPE: Emergency COMPLAINT: - LEG PAIN DIAGNOSES: - Cutaneous abscess of left lower limb - Disorder of the skin and subcutaneous tissue, unspecified - exterminator termite (current) use of insulin - Other extermination supervisor (current) drug therapy - Type 2 diabetes mellitus without complications 08/25/2022 17:34 [facility] TYPE: Emergency COMPLAINT: - ABD PAIN DIAGNOSES: - Acute gastritis without bleeding - Other long-term (current) drug therapy - Type 2 diabetes mellitus without complications - Upper abdominal pain, unspecified 07/05/2022 15:38 [facility] TYPE: Emergency COMPLAINT: - N/V BRIGHT RED BLOOD IN STOOL DIAGNOSES: - Contact with and (suspected) exposure to COVID-19 - Gastritis, unspecified, without bleeding - Other extermination supervisor (current) drug therapy - Right upper quadrant pain - Type 2 diabetes mellitus without complications INPATIENT VISIT TRACKING (12 MO.) No inpatient visits to display in this time frame [email or web address]
[2022-11-28] MEDS ORDERED: BACTRIM DS TAB1 EACH PO (10:59)
[2022-11-28 11:09] VITALS: BP 123/80
== END 2022-11-28 11:08 | disposition home or self-care (01) ==
LOC: ED 09:41
DX: L03.311 Cellulitis of abdominal wall (principal); E11.9 Type 2 diabetes mellitus without complications; Z79.899 Other long term (current) drug therapy
CPT/HCPCS: 10160; 99283-25; A9270

== ENCOUNTER 2023-11-28 13:16 | Emergency (ER) | payer OTHER ==
[~2023-11-28] VITALS: Ht 167.6 cm; Wt 110.4 kg
[2023-11-28] MEDS ORDERED: ALBUTEROL/IPRATROPIUM 3 ML NEB ONE (13:22)
[2023-11-28] MEDS ORDERED: METFORMIN HCL500 M1 PO (13:23)
[2023-11-28] MEDS ORDERED: PHENTERMINE HCL30 MG PO (13:23)
[2023-11-28] MEDS ORDERED: VITAMIN D21250 MCG PO (13:23)
[2023-11-28] MEDS ORDERED: ALBUTEROL/IPRATROPIUM 3 ML NEB INH PRN (13:30)
[2023-11-28 13:47] LABS: BASOPHILS 0.6 % (0-2); EOSINOPHILS 8.9 % (0-6); HEMATOCRIT 44.8 % (35.0-50.0); HEMOGLOBIN 15.1 g/dL (12.0-18.0); LYMPHOCYTES 13.4 % (24-44); MCH 26.8 (27-36); MCHC 33.7 g/dl (30-36); MCV 79.6 fl (81-99); MONOCYTES 5.6 % (0-12); NEUTROPHILS 71.5 % (39-80); PLATELET COUNT 356 K/uL (140-440); RBC 5.63 M/ul (4.3-5.7)
[2023-11-28 13:57] LABS: ALBUMIN 4.3 g/dL (3.4-5.0); ALBUMIN/GLOBULIN RATIO 0.91 (1.1-2.4); ANION GAP 14.8 (7-21); BILIRUBIN, TOTAL 0.5 ng/dL (0.2-1.0); BUN/CREATININE RATIO 11.23 (6.0-28.6); CALCIUM 9.8 mg/dL (8.5-10.1); CREATININE, SERUM 0.89 mg/dL (0.55-1.02); POTASSIUM 4.8 mmol/L (3.5-5.1)
[2023-11-28] MEDS ORDERED: methylPREDNISolone SOD SUCC 125 MG/2 ML VIAL IV ONE (14:00)
[2023-11-28] MEDS ORDERED: ALBUTEROL/IPRATROPIUM 3 ML NEB INH ONE (14:15)
[2023-11-28] MEDS ORDERED: PREDNISONE20 MG PO (16:47)
[2023-11-28 16:55] VITALS: BP 111/56
--- NOTE | 2023-11-30 13:15 | EKG ---
[facility] [address] [place], [place] [address] Signed Normal sinus rhythm Normal ECG No previous ECGs available Confirmed by Good Neff MD ([id number]) on 11/30/2023 1:15:03 PM Electronically Signed By: GOOD NEFF 11/30/23 1315 PATIENT NAME: MONTRELL JONES Electrocardiogram DATE OF : 89 PHYSICIAN: GOOD NEFF REPORT #: [id number] REPORT IS CONFIDENTIAL AND NOT TO BE RELEASED WITHOUT AUTHORIZATION
== END 2023-11-28 16:55 | disposition home or self-care (01) ==
LOC: ED 13:16
PROVIDERS: Emergency Medicine
DX: J45.901 Unspecified asthma with (acute) exacerbation (principal); E11.9 Type 2 diabetes mellitus without complications; Z79.84 Long term (current) use of oral hypoglycemic drugs; Z79.899 Other long term (current) drug therapy
CPT/HCPCS: 36415; 71045; 80053; 83735; 84484; 85025; 93005; 93010; 94640; 96374; 99285-25; J2919

== ENCOUNTER 2024-03-31 10:25 | Emergency (ER) | payer OTHER ==
[~2024-03-31] VITALS: Ht 167.6 cm; Wt 111.1 kg
[~2024-03-31 10:25] MED LIST changes: +METFORMIN HCL500 M1 PO; +PHENTERMINE HCL30 MG PO; +PREDNISONE20 MG PO; +VITAMIN D21250 MCG PO
[2024-03-31] MEDS ORDERED: DOXYCYCLINE HY100 MG PO (10:42)
[2024-03-31] MEDS ORDERED: ALBUTEROL/IPRATROPIUM 3 ML NEB INH ONE ×2 (10:45→11:15)
[2024-03-31] MEDS ORDERED: predniSONE 20 MG TAB PO ONE (11:15)
[2024-03-31 12:07] LABS: INFLUENZA B NAA NEGATIVE (NEGATIVE); RESPIRATORY SYNCYTIAL VIR NAA NEGATIVE (NEGATIVE)
[2024-03-31 14:23] VITALS: BP 107/59
== END 2024-03-31 14:23 | disposition home or self-care (01) ==
LOC: ED 10:25
PROVIDERS: Emergency Medicine
DX: B34.9 Viral infection, unspecified (principal); E11.9 Type 2 diabetes mellitus without complications; J45.909 Unspecified asthma, uncomplicated; E66.9 Obesity, unspecified; Z79.84 Long term (current) use of oral hypoglycemic drugs; Z79.899 Other long term (current) drug therapy
CPT/HCPCS: 71046; 87502; 94640; 94664; 99285-25; J7512; U0002

== ENCOUNTER 2024-04-23 14:31 | Emergency (ER) | payer OTHER ==
[~2024-04-23] VITALS: Ht 167.6 cm; Wt 108.4 kg
[~2024-04-23 14:31] MED LIST changes: +DOXYCYCLINE HY100 MG PO
--- OUTSIDE RECORDS SUMMARY | 2024-04-23 14:38 | XMS ---
PreManage Notification: MONTRELL JONES Security Press Reader Events No recent Security Events currently on file CRITERIA MET - [facility] - 2 Visits in 30 Days CARE PROVIDERS -, [facility] Dentist: Mule Spinner [facility] PHONE: [phone] -[place]- Dentist: Mule Spinner [facility] PHONE: [phone] [facility]: [phone] Omkar has no Care Guidelines for this patient. E.Josselyn VISIT COUNT (12 MO.) 3 [facility] TOTAL 3 NOTE: Visits indicate total known visits. ED/UCC VISIT TRACKING (12 MO.) 04/23/2024 14:32 [facility] TYPE: Emergency COMPLAINT: - SHORTNESS OF BREAHT 03/31/2024 10:26 [facility] TYPE: Emergency COMPLAINT: - SHORTNESS OF BREATH DIAGNOSES: - Cough, unspecified - terminal carman (current) use of oral hypoglycemic drugs - Obesity, unspecified - Other extermination supervisor (current) drug therapy - Type 2 diabetes mellitus without complications - Unspecified asthma, uncomplicated - Viral infection, unspecified 11/28/2023 13:17 [facility] TYPE: Emergency COMPLAINT: - SOB, DIZZY, CHEST PAIN DIAGNOSES: - Cough, unspecified - nursing home (current) use of oral hypoglycemic drugs - Other extermination supervisor (current) drug therapy - Type 2 diabetes mellitus without complications - Unspecified asthma with (acute) exacerbation INPATIENT VISIT TRACKING (12 MO.) No inpatient visits to display in this time frame [email or web address]
[2024-04-23] MEDS ORDERED: ALBUTEROL/IPRATROPIUM 3 ML NEB INH ONE (14:45)
[2024-04-23] MEDS ORDERED: DOXYCYCLINE MO100 MG PO (14:45)
[2024-04-23] MEDS ORDERED: LISINOPRIL-HCT1 EAC1 PO (14:45)
[2024-04-23] MEDS ORDERED: predniSONE 20 MG TAB PO ONE (15:30)
[2024-04-23] MEDS ORDERED: ALBUTEROL SULFATE 0.083% 3 ML VIAL INH ONE ×2 (17:15→19:15)
[2024-04-23] MEDS ORDERED: PREDNISONE20 MG PO (19:19)
[2024-04-23] MEDS ORDERED: VENTOLIN HFA18 GM INH (19:23)
[2024-04-23 19:35] VITALS: BP 132/78
== END 2024-04-23 19:35 | disposition home or self-care (01) ==
LOC: ED 14:31
DX: J45.901 Unspecified asthma with (acute) exacerbation (principal); E11.9 Type 2 diabetes mellitus without complications; Z79.84 Long term (current) use of oral hypoglycemic drugs; Z79.899 Other long term (current) drug therapy
CPT/HCPCS: 71046; 94640; 99285-25; J7512